=== PATIENT | male | born 1980 | race Hispanic/Latino ===

== ENCOUNTER 2019-01-02 10:51 | Emergency (ER) | payer SELFPAY ==
--- NOTE | 2019-01-02 12:12 | RAD REPORT ---
EXAM DESCRIPTION: CT - Head Brain Wo Cont - 01/02/2019 11:59 am CLINICAL HISTORY: Headache, right-sided head and neck pain COMPARISON: None. TECHNIQUE: Axial 5 mm thick images of the head were obtained without IV contrast. All CT scans are performed using dose optimization technique as appropriate and may include automated exposure control or mA/KV adjustment according to patient size. FINDINGS: No intracranial hemorrhage, mass, edema or shift of mid-line structures. No acute infarcti on changes seen. No abnormal extra-axial fluid collections. Ventricles are normal. Mastoid air cells are clear. Large polyp or retention cyst is present in the right maxillary sinus. N o air-fluid level confirmed. No acute bony findings. Asymmetry is created by head tilt within the scanner. IMPRESSION: Negative non-contrast CT head examination for acute finding.
--- NOTE | 2019-01-02 12:16 | RAD REPORT ---
EXAM DESCRIPTION: CT - Soft Tissue Neck Wo Contr - 01/02/2019 11:59 am CLINICAL HISTORY: Right-sided head and neck pain COMPARISON: CT head same date TECHNIQUE: During dynamic enhancement using 100 milliliters nonionic IV contrast, axial 5 millimeter thick images of the neck were obtained. All CT scans are performed using dose optimization technique as appropriate and may include automated exposure control or mA/KV adjustment according to patient size. FINDINGS: No pharyngeal mucosal mass identified. No tonsillar or tongue base abnormality seen. Parap haryngeal fat is normal in appearance. No epiglottis or laryngeal suspicious finding. There is some a symmetry created by the tilt and rotation of the neck. Patient shows a right lateral cervical tilt and rotation of the head and upper cervical spine relativ e to the mid and lower cervical spine. This may be a torticollis from muscle spasm. No pathologic bon e process seen. No destructive bone finding. Mastoid air cells are clear. Parotid glands are relatively large over what is typically seen. No focal parotid mass, edema or stra nding. Submandibular and thyroid gland tissue is unremarkable. No abnormal mass or lymphadenopathy. A few small lymph nodes are present well under 1 centimeter in size. No globe or orbital content abnormality. No acute sinus finding. IMPRESSION: Right lateral tilt of the head and upper cervical spine with rotation of the head and C1 body relative to C2 in the remainder the cervical spine. This is suspected to be a torticollis or si milar muscle spasm affect. No suspicious mass or lymphadenopathy identifiable.
[2019-01-02 12:28] LABS: Absolute Lymphocytes (CBC) 2.9 K/uL (0.7-4.9); Absolute Monocytes 0.8 K/uL (0.1-1.3); Absolute Neutrophil 6.1 K/uL (1.8-8.0); Basophils % 0.6 % (0-1.3); Eosinophils % 1.8 % (0-4.4); Hematocrit 47.4 % (39.6-49.0); Lymphocytes % 29.3 % (15.3-44.8); MPV 7.7 fL (7.6-11.3); Monocytes % 7.6 % (3.3-12.3); RBC Red Blood Cell Count 5.18 M/uL (4.33-5.43)
[2019-01-02 12:37] LABS: ALT/SGPT 24 U/L (12-78); AST/SGOT 13 U/L (15-37); Albumin 3.7 g/dL (3.4-5.0); Alkaline Phosphatase 144 U/L (45-117); BUN Blood Urea Nitrogen 13 mg/dL (7-18); Bicarbonate 24 mmol/L (21-32); Bilirubin Direct < 0.1 mg/dL (0-0.2); Bilirubin Total 0.2 mg/dL (0.2-1.0); Magnesium 2.1 mg/dL (1.8-2.4); NT PRO-BNP 10 pg/mL (<125); Potassium 4.5 mmol/L (3.5-5.1); Protein, Total 8.4 g/dL (6.4-8.2); Sodium Level 133 mmol/L (136-145); Troponin (Emerg Dept Use Only) < 0.02 ng/mL (0.0-0.045)
[2019-01-02 12:41] LABS: Glucose Level 414 mg/dL (74-106)
--- NOTE | 2019-01-02 13:23 | RAD REPORT ---
EXAM DESCRIPTION: RAD - Chest Single View - 01/02/2019 1:10 pm CLINICAL HISTORY: MALAISE Chest pain. COMPARISON: No comparisons FINDINGS: Portable technique limits examination quality. The lungs are grossly clear. The heart is normal in size. No displaced fractures. IMPRESSION: No acute intrathoracic process suspected.
[2019-01-02] MEDS ORDERED: KETOROLAC 30 MG/ML INJ ONE (14:03)
[2019-01-02] MEDS ORDERED: NA CHLORIDE 0.9% 1,000 ML ONE (14:03)
--- NOTE | 2019-01-02 15:16 | EKG ---
Test Date: 2019-01-02 Test Time: 12:09:41 Compliance Representative Dealer: CECI MEASUREMENT RESULTS: Intervals: Rate: 97 NH: 124 QRSD: 80 QT: 324 QTc: 411 Mabel: P: 61 NH: 124 QRS: 49 T: 36 INTERPRETIVE STATEMENTS: Normal sinus rhythm Normal ECG Compared to ECG 05/20/2007 06:25:29 No significant changes Electronically Signed On 01-02-19 15:15:27 CDT by Rafa Gutierrez
--- NOTE | 2019-01-02 15:23 | EDPHYS ---
Physician Documentation [facility] Name: Alexei Yoo Age: 38 yrs Sex: Male : 1980 Arrival Date: 01/02/2019 Time: 10:55 Bed 7 Private MD: ED Physician Cesario Chen HPI: 01/02 15:19 This 38 yrs old Male presents to ER via Ambulatory with complaints of tongue gs pain and headache. 15:24 The patient presents with says side of tongue is swollen and hurts, woke up about 2 am gs felt weak, chills body aches says feels like tongue is swollen hurts with motion of tongue,is not on a dahlia or arb. 15:41 Onset: The symptoms/episode began/occurred at 02:00. Severity of symptoms: At their gs worst the symptoms were moderate, in the emergency department the symptoms are unchanged. Associated signs and symptoms: Pertinent positives: flu-like symptoms, Pertinent negatives fever. The patient has not experienced similar symptoms in the past. The patient has not recently seen a physician. Historical: - Allergies: 11:08 No Known Allergies; ss - PMHx: 11:08 Diabetes - IDDM; Hypertension; Anxiety; Depression; High Cholesterol; ss - Immunization history:: Adult Immunizations up to date. - Social history:: Smoking status: Patient uses tobacco products, smokes one pack cigarettes per day. - Ebola Screening: : Patient denies exposure to infectious person Patient denies travel to an Ebola-affected area in the 21 days before illness onset. ROS: 15:41 All other systems are negative. gs Exam: 15:41 Head/Face: Normocephalic, atraumatic. Eyes: Pupils equal round and reactive to light, gs extra-ocular motions intact. Lids and lashes normal. Conjunctiva and sclera are non-icteric and not injected. Cornea within normal limits. Periorbital areas with no swelling, redness, or edema. Neck: Trachea midline, no thyromegaly or masses palpated, and no cervical lymphadenopathy. Supple, full range of motion without nuchal rigidity, or vertebral point tenderness. No Meningismus. Chest/axilla: Normal chest wall appearance and motion. Nontender with no deformity. No lesions are appreciated. Cardiovascular: Regular rate and rhythm with a normal S1 and S2. No gallops, murmurs, or rubs. Normal PMI, no JVD. No pulse deficits. Respiratory: Lungs have equal breath sounds bilaterally, clear to auscultation and percussion. No rales, rhonchi or wheezes noted. No increased work of breathing, no retractions or nasal flaring. Abdomen/GI: Soft, non-tender, with normal bowel sounds. No distension or tympany. No guarding or rebound. No evidence of tenderness throughout. Back: No spinal tenderness. No costovertebral tenderness. Full range of motion. Skin: Warm, dry with normal turgor. Normal color with no rashes, no lesions, and no evidence of cellulitis. MS/ Extremity: Pulses equal, no cyanosis. Neurovascular intact. Full, normal range of motion. Neuro: Awake and alert, GCS 15, oriented to person, place, time, and situation. Cranial nerves II-XII grossly intact. Motor strength 5/5 in all extremities. Sensory grossly intact. Cerebellar exam normal. Normal gait. 15:41 Constitutional: The patient appears alert, awake. 15:41 ENT: Mouth: Tongue: i dont see any swelling or abrasion, pt insists is swollen and hard to swallow. normal pharynx no erythema. 15:41 ECG was reviewed by the Attending Physician. Vital Signs: 11:03 BP 143 / 103; Pulse 105; Resp 17; Temp 98.7(O); Pulse Ox 99% on R/A; Weight 127.91 kg; ss Height 5 ft. 8 in. (172.72 cm); Pain 8/10; 12:30 BP 143 / 94; Pulse 96; Resp 18; Pulse Ox 95% ; bp 13:00 BP 133 / 87; Pulse 95; Resp 14; Pulse Ox 96% ; bp 14:00 BP 123 / 65; Pulse 97; Resp 14; Pulse Ox 95% ; bp 14:57 BP 106 / 61; Pulse 90; Resp 14; Pulse Ox 94% ; bp 11:03 Body Mass Index 42.88 (127.91 kg, 172.72 cm) MDM: 11:42 Patient medically screened. 01/02 11:36 Order name: Basic Metabolic Panel; Complete Time: 12:50 01/02 11:36 Order name: CBC with Diff; Complete Time: 12:50 01/02 11:36 Order name: LFT's; Complete Time: 12:50 gs 01/02 11:36 Order name: Magnesium; Complete Time: 12:50 gs 01/02 11:36 Order name: NT PRO-BNP; Complete Time: 12:50 gs 01/02 11:36 Order name: PT-INR; Complete Time: 12:50 gs 01/02 11:36 Order name: Troponin (emerg Dept Use Only); Complete Time: 12:50 gs 01/02 11:36 Order name: XRAY Chest (1 view); Complete Time: 13:31 gs 01/02 11:36 Order name: EKG; Complete Time: 11:37 gs 01/02 11:36 Order name: CT Head Brain wo Cont; Complete Time: 12:50 gs 01/02 11:39 Order name: Soft Tissue Neck Wo Contr; Complete Time: 12:50 EDMS 01/02 15:02 Order name: Glucose, Ancillary Testing; Complete Time: 15:18 EDMS 01/02 11:36 Order name: Cardiac monitoring; Complete Time: 12:30 gs 01/02 11:36 Order name: EKG - Nurse/Tech; Complete Time: 12:30 gs 01/02 11:36 Order name: IV Saline Lock; Complete Time: 12:30 gs 01/02 11:36 Order name: Labs collected and sent; Complete Time: 12:29 gs 01/02 11:36 Order name: O2 Per Protocol; Complete Time: 11:51 gs 01/02 11:36 Order name: O2 Sat Monitoring; Complete Time: 11:51 gs EC:41 Rate is 97 beats/min. Rhythm is regular. HI interval is normal. QRS interval is normal. gs QT interval is normal. T waves are Normal. No ST changes noted. Clinical impression: Normal ECG. Interpreted by me. Administered Medications: 13:10 Drug: NS 0.9% 1000 ml Route: IV; Rate: 1 bolus; Site: right wrist; bp 14:00 Drug: TORadol - Ketorolac 15 mg Route: IVP; Site: right wrist; bp 16:18 Follow up: Response: No adverse reaction; Pain is decreased bp Point of Care Testing: Blood Glucose: 15:00 Blood Glucose: 307 mg/dL; bp Ranges: Critical Glucose Levels:Adult <50 mg/dl or >400 mg/dl <40 mg/dl or >180 mg/dl Disposition: 01/02/19 15:23 Discharged to Home. Impression: Disease of tongue, unspecified, Hyperglycemia, unspecified. - Condition is Stable. - Discharge Instructions: Hyperglycemia, Pharyngitis, [id number]. - Medication Reconciliation Form, Thank You Letter, Antibiotic Education, Prescription Opioid Use, Work release form form. - Follow up: Private Physician; When: 1 - 2 days; Reason: Re-evaluation by your physician. Signatures: Dispatcher [employer] Abbie Garcia RN RN iw Kath Velásquez RN RN ss Cesario Chen MD MD gs Peltier, Brian, RN RN bp Corrections: (The following items were deleted from the chart) 16:17 15:23 01/02/2019 15:23 Discharged to Home. Impression: Disease of tongue, unspecified; iw Hyperglycemia, unspecified. Condition is Stable. Forms are Medication Reconciliation Form, Thank You Letter, Antibiotic Education, Prescription Opioid Use. Follow up: Private Physician; When: 1 - 2 days; Reason: Re-evaluation by your physician. gs
--- NOTE | 2019-01-02 15:23 | ER ---
Nurse's Notes [facility] Name: Alexei Yoo Age: 38 yrs Sex: Male : 1980 Arrival Date: 01/02/2019 Time: 10:55 Bed 7 Private MD: Diagnosis: Disease of tongue, unspecified;Hyperglycemia, unspecified Presentation: 01/02 11:05 Presenting complaint: Patient states: Pain to R side of tongue/ mouth and fatigue that ss began this morning. Pt reports generalized feeling of not feeling well. Transition of care: patient was not received from another setting of care. Onset of symptoms was January 02, 2019. Risk Assessment: Do you want to hurt yourself or someone else? Patient reports no desire to harm self or others. Initial Sepsis Screen: Does the patient meet any 2 criteria? HR > 90 bpm. Does the patient have a suspected source of infection? No. Patient's initial sepsis screen is negative. Care prior to arrival: None. 11:05 Method Of Arrival: Ambulatory ss 11:05 Acuity: KAMILLA 3 ss Triage Assessment: 11:05 General: Appears in no apparent distress. uncomfortable, obese, Behavior is bp cooperative, appropriate for age, anxious. Pain: Complains of pain in mouth. EENT: TONGUE SWELLING. Neuro: Level of Consciousness is awake, alert, obeys commands, Oriented to person, place, time, situation, Appropriate for age. Cardiovascular: No deficits noted. Respiratory: Airway is patent Respiratory effort is even, unlabored, Respiratory pattern is regular, symmetrical. GI: No signs and/or symptoms were reported involving the gastrointestinal system. : No signs and/or symptoms were reported regarding the genitourinary system. Derm: No deficits noted. Musculoskeletal: Circulation, motion, and sensation intact. Range of motion: intact in all extremities. Historical: - Allergies: 11:08 No Known Allergies; ss - PMHx: 11:08 Diabetes - IDDM; Hypertension; Anxiety; Depression; High Cholesterol; ss - Immunization history:: Adult Immunizations up to date. - Social history:: Smoking status: Patient uses tobacco products, smokes one pack cigarettes per day. - Ebola Screening: : Patient denies exposure to infectious person Patient denies travel to an Ebola-affected area in the 21 days before illness onset. Screenin:05 Abuse screen: Denies threats or abuse. Denies injuries from another. Nutritional bp screening: No deficits noted. Tuberculosis screening: No symptoms or risk factors identified. Fall Risk None identified. Assessment: 11:05 General: SEE TRIAGE NOTE. bp 12:31 Reassessment: ALL CURRENT ORDERS COMPLETED, RESULTS PENDING. AIRWAY REMAINS PATENT. bp 13:30 Reassessment: IVF INFUSING, NO ACUTE DISTRESS AT THIS TIME. bp 14:59 Reassessment: ALL CURRENT ORDERS COMPLETED, DISPO PENDING. bp 16:16 Reassessment: PT D/C HOME AMBULATORY, DX WITH UNSPECIFIED TONGUE DISEASE AND bp HYPERGLYCEMIA. Vital Signs: 11:03 BP 143 / 103; Pulse 105; Resp 17; Temp 98.7(O); Pulse Ox 99% on R/A; Weight 127.91 kg; ss Height 5 ft. 8 in. (172.72 cm); Pain 8/10; 12:30 BP 143 / 94; Pulse 96; Resp 18; Pulse Ox 95% ; bp 13:00 BP 133 / 87; Pulse 95; Resp 14; Pulse Ox 96% ; bp 14:00 BP 123 / 65; Pulse 97; Resp 14; Pulse Ox 95% ; bp 14:57 BP 106 / 61; Pulse 90; Resp 14; Pulse Ox 94% ; bp 11:03 Body Mass Index 42.88 (127.91 kg, 172.72 cm) ED Course: 10:55 Patient arrived in ED. mr 11:03 Arm band placed on right wrist. ss 11:05 Patient has correct armband on for positive identification. Bed in low position. Call bp light in reach. Side rails up X2. 11:06 Triage completed. ss 11:10 Cesario Chen MD is Attending Physician. gs 11:24 Jm Pichardo, RN is Primary Nurse. bp 11:59 CT Head Brain wo Cont In Process Unspecified. EDMS 11:59 Soft Tissue Neck Wo Contr In Process Unspecified. EDMS 12:00 Inserted saline lock: 20 gauge in right wrist, using aseptic technique. Blood collected.bp 12:09 EKG done, by biodiesel technology manager. reviewed by Cesario Chen MD. dt2 13:11 XRAY Chest (1 view) In Process Unspecified. EDMS 16:17 No provider procedures requiring assistance completed. IV discontinued, intact, bp bleeding controlled, No redness/swelling at site. Pressure dressing applied. Administered Medications: 13:10 Drug: NS 0.9% 1000 ml Route: IV; Rate: 1 bolus; Site: right wrist; bp 14:00 Drug: TORadol - Ketorolac 15 mg Route: IVP; Site: right wrist; bp 16:18 Follow up: Response: No adverse reaction; Pain is decreased bp Point of Care Testing: Blood Glucose: 15:00 Blood Glucose: 307 mg/dL; bp Ranges: Outcome: 15:23 Discharge ordered by . gs 16:17 Patient left the ED. iw 16:17 Discharged to home ambulatory. bp 16:17 Condition: stable 16:17 Discharge instructions given to patient, Instructed on discharge instructions, follow up and referral plans. Demonstrated understanding of instructions, follow-up care. Signatures: Dispatcher [employer] KRISTEN Octavio Holly Abbie Rhoades RN RN Kath Velásquez RN RN ss Starr, Gregory, MD MD gs Peltier, Brian RN May Lindsay dt2 Corrections: (The following items were deleted from the chart) 11:05 11:03 BP 143 / 103; Pulse 105bpm; Resp 17bpm; Pulse Ox 99% RA; Temp 98.7F Oral; 127.91 ss kg; Height 5 ft. 8 in.; BMI: 42.8; Pain 10/10; ss 11:08 11:05 Presenting complaint: Patient states: Pain to R side of tongue/ mouth and fatigue ss that began this morning. Pt reports generalized feeling of not feeling well. ss
== END 2019-01-02 16:17 | disposition home or self-care (01) ==
LOC: ER 10:51
DX: K14.9 Disease of tongue, unspecified (principal); E11.65 Type 2 diabetes mellitus with hyperglycemia; I10 Essential (primary) hypertension; F41.9 Anxiety disorder, unspecified; E78.00 Pure hypercholesterolemia, unspecified; F32.9 Major depressive disorder, single episode, unspecified; F17.210 Nicotine dependence, cigarettes, uncomplicated
CPT/HCPCS: 36415; 70450; 70490; 71045; 80048; 80076; 82962; 83735; 83880; 84484; 85025; 85610; 93005; 96374; 99284; J7030